=== PATIENT | male | born 1955 | race Caucasian/White ===

== ENCOUNTER 2022-08-26 12:11 | Outpatient (CLI) | payer MEDICARE, OTHER | END 2022-08-26 12:12 | disposition home or self-care (01) | LOC: CSHRAD 12:11 | PROVIDERS: ATTEND Internal Medicine Rheumatology | DX: M17.0 Bilateral primary osteoarthritis of knee (principal); M19.072 Primary osteoarthritis, left ankle and foot; M21.42 Flat foot [pes planus] (acquired), left foot ==

== ENCOUNTER 2022-12-11 09:34 | Outpatient (CLI) | payer MEDICARE, OTHER | END 2022-12-11 09:35 | disposition home or self-care (01) | LOC: CSHMRI 09:34 | PROVIDERS: ATTEND Internal Medicine Rheumatology | DX: S83.242A Other tear of medial meniscus, current injury, left knee, initial encounter (principal) ==